=== PATIENT | female | born 1975 | race Native Hawaiian/Other Pacific Islander ===

== ENCOUNTER 2018-03-13 21:47 | Emergency (ER) | payer OTHER ==
[~2018-03-13] VITALS: Ht 167.6 cm; Wt 90.7 kg
[~2018-03-13 21:47] MED LIST: LORA10TA3 PO; PERCOCET1 TA1 PO; ZOLP10TA2 PO
[2018-03-13 21:56] VITALS: TEMP 98.1
[2018-03-13 22:29] VITALS: BP 115/81
== END 2018-03-13 22:31 | disposition home or self-care (01) ==
LOC: ED 21:47
DX: M50.90 Cervical disc disorder, unspecified, unspecified cervical region (principal)
CPT/HCPCS: 96372; 99282; J2175; J2405

== ENCOUNTER 2018-06-11 17:46 | Emergency (ER) | payer OTHER ==
[~2018-06-11] VITALS: Ht 167.6 cm; Wt 99.8 kg
[2018-06-11 18:20] LABS: PLATELET COUNT 343 K/uL (152-353)
[2018-06-11 18:29] LABS: POTASSIUM 4.1 mmol/L (3.6-5.2)
[2018-06-11 21:12] VITALS: BP 130/71; TEMP 98.9
== END 2018-06-11 21:12 | disposition home or self-care (01) ==
LOC: ED 17:46
DX: J20.8 Acute bronchitis due to other specified organisms (principal); F17.210 Nicotine dependence, cigarettes, uncomplicated
CPT/HCPCS: 36415; 80053; 83735; 85027; 94664; 99283

== ENCOUNTER 2018-07-19 09:53 | Emergency (ER) | payer OTHER ==
[~2018-07-19] VITALS: Ht 167.6 cm; Wt 99.8 kg
[2018-07-19 10:10] VITALS: TEMP 99.1
[2018-07-19 13:52] VITALS: BP 112/78
== END 2018-07-19 13:52 | disposition home or self-care (01) ==
LOC: ED 09:53
DX: G43.909 Migraine, unspecified, not intractable, without status migrainosus (principal)
CPT/HCPCS: 96372; 99283; J1885; J2175; J2405

== ENCOUNTER 2018-12-03 21:52 | Emergency (ER) | payer OTHER ==
[~2018-12-03] VITALS: Ht 167.6 cm; Wt 99.8 kg
[2018-12-03] MEDS ORDERED: CELEXA20 MG PO (22:09)
[2018-12-03 22:56] VITALS: BP 130/90; TEMP 98.6
== END 2018-12-03 23:00 | disposition home or self-care (01) ==
LOC: ED 21:52
DX: R51 Headache (principal)
CPT/HCPCS: 96372; 99283; J2175; J3030

== ENCOUNTER 2019-08-05 13:00 | Emergency (ER) | payer OTHER ==
[~2019-08-05] VITALS: Ht 167.6 cm; Wt 99.8 kg
[~2019-08-05 13:00] MED LIST changes: +CELEXA20 MG PO
[2019-08-05 14:05] VITALS: BP 137/98; TEMP 97.9
== END 2019-08-05 14:23 | disposition home or self-care (01) ==
LOC: ED 13:00
DX: G43.909 Migraine, unspecified, not intractable, without status migrainosus (principal)
CPT/HCPCS: 96372; 99283; J1885; J2405

== ENCOUNTER 2020-12-17 03:18 | Emergency (ER) | payer OTHER ==
[~2020-12-17] VITALS: Ht 167.6 cm; Wt 122.5 kg
[2020-12-17 05:11] VITALS: BP 126/66; TEMP 99.5
== END 2020-12-17 05:11 | disposition home or self-care (01) ==
LOC: ED 03:18
DX: B34.9 Viral infection, unspecified (principal); Z20.828 Contact with and (suspected) exposure to other viral communicable diseases
CPT/HCPCS: 87635; 99282; 99283; U0003

== ENCOUNTER 2021-11-27 12:11 | Outpatient (CLI) | payer OTHER ==
[~2021-11-27] VITALS: Ht 170.2 cm; Wt 107.0 kg
== END 2021-11-27 20:33 | disposition home or self-care (01) ==
LOC: INF 12:11
PROVIDERS: ATTEND Internal Medicine
DX: U07.1 COVID-19 (principal); Z23 Encounter for immunization
CPT/HCPCS: 96365; Q0239; Q0245

== ENCOUNTER 2023-03-04 13:50 | Outpatient (CLI) | payer OTHER | END 2023-03-04 19:41 | disposition home or self-care (01) | LOC: MAMMO 13:50 | PROVIDERS: ATTEND Nurse Practitioner Family | DX: Z12.31 Encounter for screening mammogram for malignant neoplasm of breast (principal) ==

== ENCOUNTER 2023-03-25 13:18 | Outpatient (CLI) | payer OTHER | END 2023-03-25 19:22 | disposition home or self-care (01) | LOC: US 13:18 | PROVIDERS: ATTEND Nurse Practitioner Family | DX: E06.3 Autoimmune thyroiditis (principal) ==

== ENCOUNTER 2023-05-24 10:32 | Outpatient (CLI) | payer OTHER | END 2023-05-24 19:14 | disposition home or self-care (01) | LOC: RAD 10:32 | PROVIDERS: ATTEND Nurse Practitioner Family | DX: R60.0 Localized edema (principal) ==

== ENCOUNTER 2023-06-06 14:38 | Outpatient (CLI) | payer OTHER ==
[2023-06-06 15:09] LABS: POTASSIUM 3.9 mmol/L (3.6-5.2)
[2023-06-06 15:16] LABS: PLATELET COUNT 312 K/uL (152-353)
== END 2023-06-06 21:58 | disposition home or self-care (01) ==
LOC: CT 14:38
PROVIDERS: ATTEND Nurse Practitioner Family
DX: R10.811 Right upper quadrant abdominal tenderness (principal)
CPT/HCPCS: 80053; 82150; 83690; 85027; 86677; Q9963